=== PATIENT | female | born 1945 | race American Indian/Alaskan Native ===

== ENCOUNTER 2021-07-20 12:01 | Outpatient (CLI) | payer MEDICARE, OTHER ==
--- NOTE | 2021-07-20 13:09 | Cat Scan Report ---
CT HEAD WITHOUT CONTRAST INDICATION / CLINICAL INFORMATION: LOSS OF CONSCIOUSNESS. TECHNIQUE: Axial imaging performed from the skull apex through the skull base without the use of cont rast. Sagittal and coronal reformatted images. All CT scans at this location are performed using CT dose reduction for ALARA by means of automated exposure control. COMPARISON: None available. FINDINGS: CEREBRAL PARENCHYMA: No significant abnormality. No acute territorial infarct. HEMORRHAGE: None. EXTRA-AXIAL SPACES: Normal in size and morphology for the patient's age. VENTRICULAR SYSTEM: Normal in size and morphology for the patient's age. MIDLINE SHIFT OR HERNIATION: None. CEREBELLUM / BRAINSTEM: No significant abnormality. CALVARIUM: No significant abnormality. ORBITS: Normal as visualized. PARANASAL SINUSES / MASTOID AIR CELLS: Normal as visualized. SOFT TISSUES of HEAD: No significant abnormality. ADDITIONAL FINDINGS: None. IMPRESSION: No acute intracranial abnormality. Cranial CT scan within normal limits. Signer Name: Geovanni Mccord Jr, MD Signed: 07/20/2021 1:04 PM Workstation Name: [id number]
== END 2021-07-20 12:02 | disposition home or self-care (01) ==
LOC: CT 12:01
PROVIDERS: ATTEND Psychiatry & Neurology Neurology
DX: R40.20 Unspecified coma (principal)
CPT/HCPCS: 70450

== ENCOUNTER 2021-10-12 10:56 | Emergency (ER) | payer MEDICARE, OTHER ==
[2021-10-12] MEDS ORDERED: fentaNYL 100 MCG/2 ML INJ IV ONE (11:27)
[2021-10-12] MEDS ORDERED: SODIUM CHLORIDE 0.9% 1000 ML 1,000 ML IV ONE (11:27)
[2021-10-12] MEDS ORDERED: ONDANSETRON 4 MG/2 ML INJ IV ONE (11:27)
--- NOTE | 2021-10-12 11:29 | Emergency Department Report ---
HPI - General Chief Complaint: Nausea/Vomiting/Diarrhea Time Seen by Provider: 10/12/21 11:13 - HPI HPI: Room 3 The patient is a 76-year-old female present with a chief complaint of abdominal pain nausea and vomiting. The patient states for the past week she has had nausea and vomiting. Patient states for the past 2 days she has had diffuse intermittent abdominal pain in addition to diarrhea.. Family has noticed the patient has had decreased p.o. intake over the week. The patient had her first visit to be established as a patient with her new primary physician Dr. Galindo today and while there again had nausea and vomiting. He states he was concerned she was dehydrated and sent her to the ED for CT abdomen pelvis and management. Patient denies fever or shortness of breath. Patient states she has been vaccinated against Covid receiving her second Pfizer vaccine approximately 6-7 months ago ED Past Medical Hx - Past Medical History Hx Hypertension: Yes Hx Diabetes: Yes Additional medical history: Hypercholesterolemia, psoriasis - Surgical History Hx Appendectomy: Yes Additional Surgical History: , pacemaker, right rotator cuff - Family History Family history: no significant - Social History Smoking Status: Former Smoker (None x2-month) Substance Use Type: Marijuana ED Review of Systems ROS: Stated complaint: NAUSEA/WEAKNESS Other details as noted in HPI Constitutional: denies: fever Eyes: denies: eye pain ENT: denies: ear pain Respiratory: denies: shortness of breath Cardiovascular: denies: chest pain Endocrine: no symptoms reported Gastrointestinal: abdominal pain, nausea, vomiting, diarrhea Genitourinary: denies: dysuria Musculoskeletal: denies: back pain Neurological: denies: headache Physical Exam - Physical Exam Vital Signs: Vital Signs 10/12/21 12:06 Temperature 98 F Pulse Rate 84 Respiratory 16 Rate Blood Pressure 155/79 [Left] O2 Sat by Pulse 99 Oximetry Physical Exam: GENERAL: The patient is well-developed well-nourished female lying on stretcher not appearing to be in acute distress. [] HEENT: Normocephalic. Atraumatic. Extraocular motions are intact. Patient has moist mucous membranes. NECK: Supple. Trachea midline CHEST/LUNGS: Clear to auscultation. There is no respiratory distress noted. HEART/CARDIOVASCULAR: Regular. There is no tachycardia. There is no gallop rub or murmur. ABDOMEN: Abdomen is soft, with tenderness to palpation in the epigastric, left upper quadrant, left lower quadrant and suprapubic regions. Remainder of the abdomen is nontender. There is no rebound or guard. Patient has normal bowel sounds. There is no abdominal distention. SKIN: There is no rash. There is no edema. There is no diaphoresis. NEURO: The patient is awake, alert, and oriented. The patient is cooperative. The patient has no focal neurologic deficits. The patient has normal speech. G CS 15 MUSCULOSKELETAL: T There is no evidence of acute injury. ED Medical Decision Making - Lab Data Result diagrams: 10/12/21 11:29 10/12/21 11:29 Laboratory Tests 10/12/21 10/12/21 10/12/21 11:29 11:29 11:29 WBC 6.2 RBC 4.57 Hgb 13.4 Hct 41.1 MCV 90 MCH 29 MCHC 33 RDW 16.2 H Plt Count 254 Lymph % (Auto) 21.5 Brooks % (Auto) 4.1 Eos % (Auto) 1.6 Baso % (Auto) 0.6 Lymph # (Auto) 1.3 Brooks # (Auto) 0.3 Eos # (Auto) 0.1 Baso # (Auto) 0.0 Seg Neutrophils % 72.2 H Seg Neutrophils # 4.4 VBG pH 7.411 Sodium 136 L Potassium 3.7 Chloride 101.3 Carbon Dioxide 16 L Anion Gap 22 BUN 27 H Creatinine 1.3 H Estimated GFR 48 BUN/Creatinine Ratio 21 Glucose 117 H Calcium 10.1 Total Bilirubin 0.20 AST 15 ALT 12 Alkaline Phosphatase 87 Total Protein 9.3 H Albumin 4.6 Albumin/Globulin Ratio 1.0 Lipase 39 - Radiology Data Radiology results: report reviewed (CT abdomen pelvis), image reviewed (CT abdomen pelvis) [address] [address] Cat Scan Report Signed Patient: BILL BRYSON MR#: [id number] : 1945 Acct:[id number] Age/Sex: 76 / F ADM Date: 10/12/21 Loc: ED Attending Dr: Ordering Physician: CHANTELLE LEE MD Date of Service: 10/12/21 Procedure(s): CT abdomen pelvis w con Accession Number(s): [id number] cc: CHANTELLE LEE MD CT ABDOMEN AND PELVIS WITH CONTRAST INDICATION / CLINICAL INFORMATION: Diffuse abdominal pain nvd OMNI 300 100 ML. TECHNIQUE: Axial CT images were obtained through the abdomen and pelvis after IV contrast. All CT scans at this location are performed using CT dose reduction for ALARA by means of automated exposure control. COMPARISON: None available. FINDINGS: LOWER CHEST: No significant abnormality. LIVER: No significant abnormality. GALLBLADDER: No significant abnormality. BILE DUCTS: No significant abnormality. PANCREAS: No significant abnormality. SPLEEN: No significant abnormality. ADRENALS: No significant abnormality. RIGHT KIDNEY / URETER: Simple cyst right upper pole. No hydronephrosis. LEFT KIDNEY / URETER: Simple cyst lower pole. No hydronephrosis. STOMACH / SMALL BOWEL: Small hiatal hernia. Small bowel is nondilated. COLON: No significant abnormality. APPENDIX: Not visualized. PERITONEUM: No free fluid. No free air. No fluid collection. LYMPH NODES: There are nonspecific prominent lymph nodes at the gastroesophageal junction/gastrohepatic ligament with short axis measuring up to 1.1 cm. There are also prominent portacaval lymph nodes measuring up to 1.3 cm short axis. AORTA / ARTERIES: Severe atherosclerotic calcification without acute abnormality. IVC / VEINS: No significant abnormality. URINARY BLADDER: No significant abnormality. REPRODUCTIVE ORGANS: Uterus is absent. No significant adnexal abnormality. ADDITIONAL FINDINGS: None. SKELETAL SYSTEM: Degenerative changes of the spine. No aggressive osseous lesion. IMPRESSION: 1. Nonspecific prominent gastrohepatic ligament lymph nodes and portacaval lymph nodes. Otherwise, no acute abnormality identified. 2. Incidental findings as above. Signer Name: Iraj Chang MD Signed: 10/12/2021 1:26 PM Workstation Name: [email or web address] Transcribed By: DB Dictated By: IRAJ CHANG MD Electronically Authenticated By: IRAJ CHANG MD Signed Date/Time: 10/12/21 1326 DD/ 1318 TD/TT: Print Cancel - Differential Diagnosis Gastroenteritis, dehydration, partial small bowel obstruction, diverticulit Critical care attestation.: If time is entered above; I have spent that time in minutes in the direct care of this critically ill patient, excluding procedure time. ED Disposition Clinical Impression: Acute abdominal pain Disposition: 07 LEFT AGAINST MEDICAL ADVICE Is pt being admited?: No Does the pt Need Aspirin: No Condition: Undetermined Referrals: PRIMARY CARE, [Primary Care Provider] - 3-5 Days Time of Disposition: 17:24 (Patient eloped)
[2021-10-12 11:43] LABS: Basophils % (Auto) 0.6 % (0.0-1.8); Eosinophils # (Auto) 0.1 K/mm3 (0.0-0.4); Eosinophils % (Auto) 1.6 % (0.0-4.3); Hematocrit 41.1 % (30.3-42.9); Hemoglobin 13.4 gm/dl (10.1-14.3); Lymphocytes # (Auto) 1.3 K/mm3 (1.2-5.4); Lymphocytes % (Auto) 21.5 % (13.4-35.0); Mean Corpuscular HGB Conc 33 % (30-34); Mean Corpuscular Volume 90 fl (79-97); Monocytes # (Auto) 0.3 K/mm3 (0.0-0.8); Monocytes % (Auto) 4.1 % (0.0-7.3); Platelet Count 254 K/mm3 (140-440); Red Blood Count 4.57 M/mm3 (3.65-5.03); Red Cell Distribution Width 16.2 % (13.2-15.2)
[2021-10-12 12:03] LABS: Albumin 4.6 g/dL (3.9-5); Calcium 10.1 mg/dL (8.4-10.2)
[2021-10-12 12:12] VITALS: BP 155/79
--- NOTE | 2021-10-12 13:30 | Cat Scan Report ---
CT ABDOMEN AND PELVIS WITH CONTRAST INDICATION / CLINICAL INFORMATION: Diffuse abdominal pain nvd OMNI 300 100 ML. TECHNIQUE: Axial CT images were obtained through the abdomen and pelvis after IV contrast. All CT sc ans at this location are performed using CT dose reduction for ALARA by means of automated exposure c ontrol. COMPARISON: None available. FINDINGS: LOWER CHEST: No significant abnormality. LIVER: No significant abnormality. GALLBLADDER: No significant abnormality. BILE DUCTS: No significant abnormality. PANCREAS: No significant abnormality. SPLEEN: No significant abnormality. ADRENALS: No significant abnormality. RIGHT KIDNEY / URETER: Simple cyst right upper pole. No hydronephrosis. LEFT KIDNEY / URETER: Simple cyst lower pole. No hydronephrosis. STOMACH / SMALL BOWEL: Small hiatal hernia. Small bowel is nondilated. COLON: No significant abnormality. APPENDIX: Not visualized. PERITONEUM: No free fluid. No free air. No fluid collection. LYMPH NODES: There are nonspecific prominent lymph nodes at the gastroesophageal junction/gastrohepat ic ligament with short axis measuring up to 1.1 cm. There are also prominent portacaval lymph nodes m easuring up to 1.3 cm short axis. AORTA / ARTERIES: Severe atherosclerotic calcification without acute abnormality. IVC / VEINS: No significant abnormality. URINARY BLADDER: No significant abnormality. REPRODUCTIVE ORGANS: Uterus is absent. No significant adnexal abnormality. ADDITIONAL FINDINGS: None. SKELETAL SYSTEM: Degenerative changes of the spine. No aggressive osseous lesion. IMPRESSION: 1. Nonspecific prominent gastrohepatic ligament lymph nodes and portacaval lymph nodes. Otherwise, no acute abnormality identified. 2. Incidental findings as above. Signer Name: Nicho Chang MD Signed: 10/12/2021 1:26 PM Workstation Name: [id number]
== END 2021-10-12 17:38 | disposition left against medical advice (07) ==
LOC: ED 10:56
DX: R10.0 Acute abdomen (principal); I10 Essential (primary) hypertension; E11.9 Type 2 diabetes mellitus without complications; Z90.89 Acquired absence of other organs; Z87.891 Personal history of nicotine dependence
CPT/HCPCS: 36415; 74177; 80053; 82805; 83690; 85025; 96361; 96374; 96375; 99284; J2405; J3010; J7030; Q9967; Q0162

== ENCOUNTER 2022-04-06 07:45 | Outpatient (CLI) | payer MEDICARE, OTHER ==
--- NOTE | 2022-04-06 08:52 | Cat Scan Report ---
CT ABDOMEN AND PELVIS WITHOUT CONTRAST HISTORY: R19.00 INTRA ABDOMINAL AND PELVIC SWELLING,MASS,LUMP COMPARISON: 10/12/2021 TECHNIQUE: Axial CT images were obtained through the abdomen and pelvis without IV contrast. Sagittal and coronal reformatted images. All CT scans at this location are performed using CT dose reduction for ALARA by means of automated exposure control. FINDINGS: CT ABDOMEN: Lung Bases: Clear. Liver: No significant abnormality. Biliary: Multiple small gallstones are identified in the gallbladder fundus. No biliary dilatation or inflammation. Spleen: No significant abnormality. Unenlarged. Pancreas: No significant abnormality. Adrenals: No significant abnormality. Kidneys: There are a few scattered punctate renal calyceal stones in both kidneys. No ureteral stones or hydronephrosis. Solitary bilateral renal cysts are identified measuring up to 2.5 cm, unchanged. Lymphatics: No pathologic adenopathy is detected. Previously noted shotty gastrohepatic ligament lymp h nodes are noted. Vasculature: Moderate to severe atherosclerotic plaques are noted throughout the abdominal aorta and iliac arteries without acute abnormality. Bowel/Peritoneum: No significant abnormality. No free air. No free fluid. The appendix is not confide ntly identified. CT PELVIS: : Stable hysterectomy changes. The vaginal cuff, adnexa and bladder are unremarkable. Osseous Structures: No acute abnormality. Stable mild thoracolumbar spondylosis. Additional Findings: None IMPRESSION: No acute processes mass or adenopathy. Cholelithiasis. Bilateral nephrolithiasis and bilateral cysts. No hydronephrosis. Moderate to severe atherosclerotic disease in the abdominal arteries. Hysterectomy. No significant change is appreciated since 10/12/2021 exam. Signer Name: Geovanni Mccord Jr, MD Signed: 04/06/2022 8:47 AM Workstation Name: [id number]
--- NOTE | 2022-04-06 09:03 | XRay Report ---
LUMBOSACRAL SPINE 3 VIEWS INDICATION: M54.50 LOW BACK PAIN. COMPARISON: None. IMPRESSION: There is grade 1 anterolisthesis of L3 with respect to L4. The remaining lumbar vertebra are normal in alignment. 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 L3-4 and L4-5 are the most affected levels. There are mild symmetric degenerative changes at t he SI joints. No acute osseous or soft tissue abnormality. Signer Name: Geovanni Mccord Jr, MD Signed: 04/06/2022 8:58 AM Workstation Name: [id number]
== END 2022-04-06 07:46 | disposition home or self-care (01) ==
LOC: CT 07:45
PROVIDERS: ATTEND Internal Medicine
DX: N20.0 Calculus of kidney (principal); N28.1 Cyst of kidney, acquired; M47.815 Spondylosis without myelopathy or radiculopathy, thoracolumbar region; K80.20 Calculus of gallbladder without cholecystitis without obstruction; R19.00 Intra-abdominal and pelvic swelling, mass and lump, unspecified site; M47.816 Spondylosis without myelopathy or radiculopathy, lumbar region; M47.898 Other spondylosis, sacral and sacrococcygeal region; Z90.710 Acquired absence of both cervix and uterus
CPT/HCPCS: 72100; 74176

== ENCOUNTER 2022-07-23 19:51 | Emergency (ER) | payer MEDICARE, OTHER ==
[2022-07-23 20:06] VITALS: BP 106/65
--- NOTE | 2022-07-23 20:49 | XRay Report ---
CHEST 2 VIEWS INDICATION / CLINICAL INFORMATION: Chest Pain. COMPARISON: Chest radiograph 05/01/2012 FINDINGS: SUPPORT DEVICES: There is a left chest wall cardiac generator with intact leads. HEART / MEDIASTINUM: No significant abnormality. LUNGS / PLEURA: No significant pulmonary or pleural abnormality. No pneumothorax. ADDITIONAL FINDINGS: No significant additional findings. IMPRESSION: 1. No acute findings. Signer Name: Juanpablo Bloom MD Signed: 07/23/2022 8:45 PM Workstation Name: [id number]
[2022-07-23 21:04] LABS: Basophils % (Auto) 0.8 % (0.0-1.8); Eosinophils # (Auto) 0.2 K/mm3 (0.0-0.4); Eosinophils % (Auto) 3.6 % (0.0-4.3); Hematocrit 32.9 % (30.3-42.9); Lymphocytes # (Auto) 2.4 K/mm3 (1.2-5.4); Lymphocytes % (Auto) 37.4 % (13.4-35.0); Mean Corpuscular HGB Conc 33 % (30-34); Mean Corpuscular Volume 95 fl (79-97); Monocytes # (Auto) 0.5 K/mm3 (0.0-0.8); Monocytes % (Auto) 8.1 % (0.0-7.3); Platelet Count 185 K/mm3 (140-440); Red Blood Count 3.46 M/mm3 (3.65-5.03)
[2022-07-23 21:13] LABS: INR 0.96 (0.87-1.13)
[2022-07-23 21:14] LABS: Partial Thromboplastin Time 28.9 Sec. (24.2-36.6)
[2022-07-23 21:25] LABS: Albumin 4.5 g/dL (3.9-5); Calcium 9.9 mg/dL (8.4-10.2)
--- NOTE | 2022-07-24 09:42 | Electrocardiograph Report ---
[facility] Test Date: 2022-07-23 Test Time: 19:55:52 Pat Name: BILL BRYSON Department: Room: Gender: F Refiner Operator: WENDY : 1945 Requested By: ANITRA HAMLIN Order Number: [id number] Reading MD: Reid Short Measurements Intervals [place] Rate: 67 P: ND: 174 QRS: 66 QRSD: 83 T: 59 QT: 359 QTc: 380 Interpretive Statements Atrial-paced rhythm Low voltage, precordial leads No previous ECG available for comparison Electronically Signed On 07-24-2022 9:42:31 EDT by Reid Shrot
== END 2022-07-24 09:55 | disposition left against medical advice (07) ==
LOC: ED 19:51
DX: R07.9 Chest pain, unspecified (principal); Z53.21 Procedure and treatment not carried out due to patient leaving prior to being seen by health care provider
CPT/HCPCS: 36415; 71046; 80053; 85025; 85610; 85730; 93005